=== PATIENT | female | born 1975 | race Caucasian/White ===

== ENCOUNTER 2020-10-13 22:35 | Observation (INO) | payer OTHER ==
[~2020-10-13] VITALS: Ht 175.3 cm; Wt 80.4 kg
[2020-10-13] MEDS ORDERED: ALPRAZOLAM2 M1 PO (22:51)
[2020-10-13 23:35] LABS: BASOPHILS ABSOLUTE AUTO 0.09 K/mm3 (0.00-0.23); BASOPHILS PERCENT AUTO 1 % (0-2); EOSINOPHILS ABSOLUTE AUTO 0.11 K/mm3 (0.00-0.68); EOSINOPHILS PERCENT AUTO 1 % (0-6); Hematocrit 43.4 % (33.0-51.0); Hemoglobin 14.6 g/dL (11.5-16.0); IMMATURE GRAN ABSOLUTE AUTO 0.11 K/mm3 (0.00-0.10); IMMATURE GRAN PERCENT AUTO 1 % (0-1); LYMPHOCYTES ABSOLUTE AUTO 2.32 K/mm3 (0.84-5.20); LYMPHOCYTES PERCENT AUTO 22 % (21-46); MONOCYTES ABSOLUTE AUTO 0.49 K/mm3 (0.16-1.47); MONOCYTES PERCENT AUTO 5 % (4-13); Mean Corpuscular HGB 31.2 pg (26.0-34.0); Mean Corpuscular HGB Conc 33.6 g/dL (31.5-36.5); Mean Corpuscular Volume 93 fL (80-100); NEUTROPHILS ABSOLUTE AUTO 7.61 K/mm3 (1.96-9.15); NEUTROPHILS PERCENT AUTO 71 % (41-73); RDW Standard Deviation 43.9 fL (35.1-46.3); Red Blood Cell Count 4.68 M/mm3 (3.80-5.20); White Blood Cell Count 10.73 K/mm3 (4.00-11.30)
[2020-10-13 23:40] LABS: Mean Platelet Volume 10.7 fL (9.1-12.4); Platelet Count 187 K/mm3 (150-400)
[2020-10-13 23:45] LABS: Alanine Aminotransfer (ALT/SGP 42 U/L (12-78); Albumin, Blood 3.3 g/dL (3.4-5.0); Albumin/Globulin Ratio 0.8 (0.8-1.8); Alk Phos 29 U/L (50-136); Anion Gap 9 mmol/L (6-16); Aspartate Aminotrans (AST/SGOT 62 U/L (12-37); Beta HCG, Quantitative, Serum <1 mIU/mL (0-3); Bilirubin, Total 0.3 mg/dL (0.1-1.0); Blood Urea Nitrogen 8 mg/dL (8-24); Bun/Creatinine Ratio 11.1 (12.0-20.0); CO2, Blood 21 mmol/L (21-32); Calcium, Blood 8.7 mg/dL (8.5-10.1); Chloride, Blood 110 mmol/L (98-108); Creatinine, Blood 0.72 mg/dL (0.40-1.00); Ethanol (Alcohol), Blood, Med 184 mg/dL; Globulin, Blood 4.2 g/dL (2.2-4.0); Glomerular Filtration Rate >60 (60-); Glucose, Blood 90 mg/dL (70-99); Potassium, Blood 4.6 mmol/L (3.5-5.5); Sodium, Blood 140 mmol/L (136-145); Total Protein, Blood 7.5 g/dL (6.4-8.2)
[2020-10-13 23:45] LABS: Source, Urine Clean Catch
[2020-10-13 23:48] LABS: Bilirubin, Urine Neg (Neg); Blood, Urine Neg (Neg); Glucose Qualitative, Urine Neg (Neg); Ketones, Urine Neg (Neg); Leukocyte Esterase, Urine Neg (Neg); Nitrite, Urine Neg (Neg); Protein, Urine Neg (Neg); Specific Gravity, Urine 1.005 (1.003-1.022); Urobilinogen, Urine NORM (Normal); pH, Urine 6.5 (5.0-8.0)
[2020-10-13 23:56] LABS: International Normalized Ratio 0.96; Prothrombin Time Results 10.3 Sec (9.7-11.5)
[2020-10-13 23:58] LABS: Appearance, Urine Clear (Clear); Color, Urine Yellow (P-Yellow)
[2020-10-14 00:53] LABS: U Amphetamine Screen Not Detected; U Barbituate Screen Not Detected; U Benzodiazapine Screen DETECTED; U Buprenorphine Screen Not Detected; U Cannabinoids Screen Not Detected; U Cocaine Screen Not Detected; U Methadone Screen Not Detected; U Methamphetamine Screen Not Detected; U Opiates Screen Not Detected; U Oxycodone Screen Not Detected; U Phencyclidine Screen Not Detected; U Propoxyphene Screen Not Detected
--- NOTE | 2020-10-14 01:40 | NUR ---
PT HERE VIA [facility] FROM ER. PT TRANSFERRED FROM [facility] TO PCU BED. PT IS ALERT AND ORIENTED. R FOREHEAD WITH SWELLING AND BACK OF LEFT SIDE OF HEAD WITH SWELLING. R KNEE DIME SIZE ABRASION, LEFT ESQUIVEL WITH 1/2 DIME SIZE SCAB. PT ORIENTED TO ROOM/CALL LIGHT. PT IS NPO. TOOTHETTE GIVEN. IV FLUIDS INFUSING WITHOUT DIFFICULTY. PT DENIES ANY CHEST PAIN, SOB, NAUSEA, OR NUMBNESS AND TINGLING. PT REPORTS PAST HISTORY OF HEROIN USE, AND REPORTS SHE BELIEVES "POOR CIRCULATION" TO HER BILATERAL HANDS IS DUE TO THIS PAST HEROIN USE. PT REPORTS MILD HEADACHE PAIN. OTHERWISE, PT DENIES ANY DISCOMFORT OR PAIN. CALL LIGHT WITHIN REACH. BED IN LOW POSITION. PT IN SEMI-FOWLERS POSITION WATCHING TV.
--- NOTE | 2020-10-14 05:12 | NUR ---
NEURO CHECKS WNL - LIZ, UPPER/LOWER EXTREMITY STRENGTH EQUAL BILATERALLY. CALL LIGHT WITHIN REACH. BED IN LOW POSITION. BED ALARM ON FOR SAFETY. PT WAS SLEEPING UPON ENTERING THE ROOM FOR NEURO CHECK.
--- NOTE | 2020-10-14 05:40 | NUR ---
PAS PLACED ON TO BLE. CALL LIGHT WITHIN REACH. BED IN LOW POSITION. BED ALARM ON FOR SAFETY.
--- NOTE | 2020-10-14 06:35 | NUR ---
I SPOKE TO DR. ZUNIGA, UPDATED ON LAST FENTANYL DOSE, AND CURRENT HEADACHE PAIN LEVEL. ALSO UPDATED THAT PT HAS A SUBDURAL HEMATOMA, IS SCHEDULED FOR A REPEAT CT SCAN AT 0700 THIS AM, AND REPORTED THAT PT'S RIGHT FOREHEAD SWELLING HAS INCREASED TO LEFT SIDE OF FOREHEAD, APPX MIDLINE LEFT FOREHEAD. NEW ORDER OBTAINED FOR TYLENOL, AND NEW ORDER FOR ICE CHIPS.
[2020-10-14] MEDS ORDERED: ACET325 PO (12:20)
--- NOTE | 2020-10-14 17:42 | NUR ---
Pt was given verbal and written discharge instructions, verbalzied understanding, denies questions. IV's were discontinued, caths intact. Stable at time of discharge. Left via w/c.
== END 2020-10-14 17:25 | disposition home or self-care (01) ==
LOC: ER 22:35 → PCU 22:36
PROVIDERS: Emergency Medicine; ADMIT Surgery
DX: S06.5X0A Traumatic subdural hemorrhage without loss of consciousness, initial encounter (principal); S06.6X0A Traumatic subarachnoid hemorrhage without loss of consciousness, initial encounter; R90.89 Other abnormal findings on diagnostic imaging of central nervous system; R07.9 Chest pain, unspecified; F41.9 Anxiety disorder, unspecified; Z79.899 Other long term (current) drug therapy; V89.2XXA Person injured in unspecified motor-vehicle accident, traffic, initial encounter
CPT/HCPCS: 36415; 51702; 70450; 70496; 71045; 72125; 80053; 81003; 83690; 84702; 85025; 85610; 92523; 96361; 97161; 97530; 99285-25; A9270; G0378; G0480; J3010; J7030; Q9967

== ENCOUNTER 2020-10-21 12:41 | Emergency (ER) | payer OTHER ==
[~2020-10-21] VITALS: Ht 175.3 cm; Wt 68.0 kg
[~2020-10-21 12:41] MED LIST: ACET325 PO; ALPRAZOLAM2 M1 PO
== END 2020-10-21 15:34 | disposition home or self-care (01) ==
LOC: ER 12:41
DX: F07.81 Postconcussional syndrome (principal); Z79.899 Other long term (current) drug therapy
CPT/HCPCS: 70450; 99283-25